=== PATIENT | female | born 1975 | race Caucasian/White ===

== ENCOUNTER 2016-04-18 17:18 | Emergency (ER) | payer OTHER ==
[2016-04-18] MEDS ORDERED: OPTIRAY 350 100 ML VIAL HMH IV ONE (17:19)
[2016-04-18] MEDS ORDERED: ONDANSETRON 4 MG VIAL ONE (22:08)
[2016-04-18] MEDS ORDERED: MORPHINE 4 MG/ML SYR ONE (22:08)
== END 2016-04-18 23:14 | disposition home or self-care (01) ==
LOC: ER 17:18
DX: K92.1 Melena (principal); N83.202 Unspecified ovarian cyst, left side; R93.8 Abnormal findings on diagnostic imaging of other specified body structures; Z79.899 Other long term (current) drug therapy; F17.210 Nicotine dependence, cigarettes, uncomplicated
CPT/HCPCS: 36415; 74177; 80053; 81001; 83690; 84703; 85025; 96374; 96375